=== PATIENT | male | born 1970 | race Caucasian/White ===

== ENCOUNTER 2025-03-18 17:26 | Emergency (ER) | payer MEDICAID, SELFPAY ==
[2025-03-18] VITALS (7 sets, daily range): BP systolic 119–156; BP diastolic 95–106; PULSE 87–109; RESP 16–26; TEMP 36.6–37; O2SAT 87–100; BMI 28.6
[2025-03-18] MEDS: NALOXONE INJ 0.4 MG/ML VIAL IV (17:40)
--- NOTE | 2025-03-18 17:41 | PD.EDADULT ---
ED General RME/HPI General Chief complaint: Overdose Stated complaint: FAINTED Time Seen by Provider: 03/18/25 17:34 Arrival date/time: 03/18/25 17:26 Limitations: altered mental status and other (nonresponsive) RME / HPI RME / HPI narrative: DR. JOSHUA MAIN ED EVALUATION: 54 year old male presents to the Emergency Department with complaint of possible overdose. At 1727 hours, code shahab was called. Patient stopped breathing and was diaphoretic, but never lost pulses. Narcan was given and we were getting ready to intubate, we were bagging the patient, when the patient started breathing spontaneously and started talking at 1730 hours. Patient woke up and became alert. No complaints after he woke up. Blood glucose was 145. Related Data Home Medications ?Medication ?Instructions ?Recorded ?Confirmed metformin 500 mg tablet 500 mg PO QDAY 07/05/24 07/05/24 albuterol sulfate 90 mcg/actuation 1 inh inhalation Q3H PRN asthma 07/06/24 07/06/24 aerosol inhaler beclomethasone dipropionate 80 1 inh inhalation BID 07/06/24 07/06/24 mcg/actuation HFA breath activated aerosol (Qvar RediHaler) Previous Rx's ?Medication ?Instructions ?Recorded aluminum-mag hydroxide-simethicone 30 ml PO QID PRN dyspepsia #3,000 07/08/24 200 mg-200 mg-20 mg/5 mL oral susp mL (Antacid) pantoprazole 40 mg tablet,delayed 40 mg PO BID #30 tabs 07/08/24 release (Protonix) sucralfate 1 gram tablet (Carafate) 1 g PO Q6H #30 tabs 07/08/24 albuterol sulfate 90 mcg/actuation 2 puff inhalation Q6H PRN 03/19/25 aerosol inhaler shortness of breath or wheezing #8.5 grams azithromycin 500 mg tablet 500 mg PO QDAY 3 days #3 tabs 03/19/25 (Zithromax TRI-KY) prednisone 50 mg tablet 50 mg PO BID 3 days #6 tabs 03/19/25 Allergies Allergy/AdvReac Type Severity Reaction Status Date / Time No Known Allergies Allergy Verified 03/18/25 17:40 Review of Systems Review of Systems ROS Unobtainable: unobtainable due to mental status Past Medical History Past Medical History NEUROLOGIC: Negative Seizures CARDIAC: Negative Congestive Heart Failure RESPIRATORY: Positive Chronic Obstructive Pulmonary Disease (COPD) GENITOURINARY: Negative Renal Disease ENDOCRINE: Positive Diabetes Mellitus Type 2; Negative Diabetes Mellitus Type 1 OTHER HISTORY: Positive Blood Transfusions; Negative Blood Transfusion Reaction or Anesthesia Reactions Social History SMOKING STATUS: Current every day smoker SUBSTANCE USE: does not use ALCOHOL: Never ED Exam Narrative Physical exam: At 1727 hours, agustin gudino was called. Patient stopped breathing and was diaphoretic, but never lost pulses. At 1730 hours, patient woke up and became alert. Physical exam at arrival: General Limitations: Present altered mental status and other (nonresponsive) General appearance: Present obese Head Head exam: Present atraumatic, normocephalic and normal inspection Eye Eye exam: Present other (Left eye blind, opacified. Right pupil was pinpoint.) ENT ENT exam: Present normal exam, normal oropharynx and mucous membranes moist Neck Neck exam: Present normal inspection Chest Chest inspection: Present normal inspection and symmetric chest wall rise Respiratory Respiratory exam: Present respiratory distress (not breathing initially) Cardiovascular Cardiovascular exam: Present regular rate, normal rhythm and normal heart sounds Abdominal Exam Abdominal exam: Present distention (obese and mild distention) Extremities Exam Extremities exam: Present normal inspection Back Exam Back exam: Present normal inspection Neurological Exam Neurological exam: Present other (nonresponsive; not moving any extremities) Skin Skin exam: Present warm, dry, intact and normal color Course Quality Measures none Orders Category Date Time Status Bedside COVID-19 Antigen Test NOW Care 03/18/25 21:13 Completed Bedside Influenza A&B Antigen Test NOW Care 03/18/25 21:13 Completed COVID-19 Screening Questionnaire NOW Care 03/18/25 22:[address] Screening NOW Care 03/18/25 21:14 Completed Decision to Admit X1 Care 03/18/25 22:18 Completed EKG (ED ONLY) *Do not use* NOW Care 03/18/25 17:43 Completed Saline [Insert IV] NOW Care 03/18/25 17:[address] head/brain wo con Stat Exams 03/18/25 17:48 Completed EKG (ED Only) Stat Exams 03/18/25 17:42 Draft XR chest 1V portable Stat Exams 03/18/25 17:48 Completed ABG [Arterial Blood Gas] Stat Lab 03/18/25 21:31 Completed ABG [Arterial Blood Gas] Stat Lab 03/18/25 23:21 Completed Acetaminophen Stat Lab 03/18/25 17:30 Completed Alcohol, Blood Medical Stat Lab 03/18/25 17:30 Completed BNP [B-Type Natriuretic Peptide] Stat Lab 03/18/25 20:54 Completed Bilirubin,Direct Stat Lab 03/18/25 17:30 Completed CBC Stat Lab 03/18/25 17:30 Completed CK [Creatine Kinase] Stat Lab 03/18/25 17:30 Completed CMP [Comprehensive Metabolic Panel] Stat Lab 03/18/25 17:30 Completed D-Dimer Stat Lab 03/18/25 20:54 Completed Drug Screen,Urine Stat Lab 03/18/25 19:26 Completed Free T4 (Free Thyroxine) Stat Lab 03/18/25 20:54 Completed Hemoglobin A1C [Glycohemoglobin w (eAG)] Stat Lab 03/18/25 17:30 Completed Magnesium Stat Lab 03/18/25 17:30 Completed PT [Prothrombin Time with INR] Stat Lab 03/18/25 17:30 Completed PTT [Partial Thromboplastin Time] Stat Lab 03/18/25 17:30 Completed Salicylate Stat Lab 03/18/25 17:30 Completed TSH [Thyroid Stimulating Hormone] Stat Lab 03/18/25 20:54 Completed Troponin I Stat Lab 03/18/25 17:30 Completed Troponin I Stat Lab 03/18/25 20:54 Completed UA, C/S IF [Urinalysis, C/S if Indicated] Stat Lab 03/18/25 19:26 Completed VBG [Venous Blood Gas] Stat Lab 03/18/25 17:30 Completed VBG [Venous Blood Gas] Stat Lab 03/18/25 20:54 Completed Albuterol/Ipratr Rt Tiffanie [Duoneb Rt Tiffanie] Med 03/18/25 21:13 Discontinued 3 ml INH X1 ONE Levalbuterol Rt [Xopenex Rt Tiffanie] Med 03/18/25 22:39 Discontinued 2.5 mg INH X1 ONE Magnesium Sulfate 2 GM Ivpb [Magnesium Sulfate Ivpb] Med 03/18/25 22:39 Discontinued 2 gm in 50 ml IV X1 MethylPREDNISolone.* [SoluMEDROL Inj] Med 03/18/25 21:13 Discontinued 125 mg IVP X1 ONE MethylPREDNISolone.* [SoluMEDROL Inj] Med 03/18/25 22:39 Discontinued 125 mg IVP X1 ONE NALOXONE INJ (Vial) [Narcan Inj (Vial)] Med 03/18/25 17:31 Discontinued 0.4 mg IV X1 ONE Ondansetron Inj [Zofran Inj] Med 03/18/25 17:47 Discontinued 4 mg IVP X1 ONE Ringers Lactated 1000 ml [Lactated Ringers] 1,000 ml Med 03/18/25 20:07 Discontinued IV 1,000 mls/hr Sodium Chloride 0.9% 1000 ml [Ns] 1,000 ml Med 03/18/25 17:47 Discontinued IV 999 mls/hr Sodium Chloride Rt Tiffanie 0.9% [NS Rt Tiffanie 0.9%] Med 03/18/25 22:39 Discontinued 9 ml INH PRN PRN Vital Signs Vital signs: Vital Signs Temperature 98.6 F 03/18/25 17:43 Pulse Rate 109 H 03/18/25 17:43 Respiratory Rate 24 H 03/18/25 17:43 Blood Pressure 156/106 H 03/18/25 17:43 Pulse Oximetry (%) 94 L 03/18/25 17:43 Oxygen Delivery Method Room Air 03/18/25 17:43 Critical Care Time Critical Care Time Critical Care Time: Yes Total Critical Care Time (min.): 45 Attestation: The high probability of sudden, clinically significant deterioration in the patient?s condition required the highest level of my preparedness to intervene urgently. The services I provided to this patient were to treat and/or prevent clinically significant deterioration. Services included the following: chart data review, reviewing nursing notes and/or old charts, documentation time, immigration consultant collaboration regarding findings and treatment options, medication orders and management, direct patient care, vital sign assessments and ordering, interpreting and reviewing diagnostic studies and lab tests. Aggregate critical care time includes only time during which I was engaged in work directly related to the patient?s care, as described above, whether at bedside or elsewhere in the Emergency Department. It did not include time spent performing other reported procedures or the services of residents, students, nurses or physician assistants. Discharge Plan Plan Patient Disposition: HOME (Self Care) Prescriptions/Referrals Prescriptions/Med Rec: New prednisone 50 mg tablet 50 mg PO BID 3 Days Qty: 6 0RF albuterol sulfate 90 mcg/actuation HFA aerosol inhaler 2 puff inhalation Q6H PRN (Reason: shortness of breath or wheezing) Qty: 8.5 0RF azithromycin [Zithromax TRI-KY] 500 mg tablet 500 mg PO QDAY 3 Days Qty: 3 0RF No Action metformin 500 mg Tablet 500 mg PO QDAY albuterol sulfate 90 mcg/actuation HFA aerosol inhaler 1 inh INHALATION Q3H PRN (Reason: asthma) Qvar RediHaler 80 mcg/actuation HFA aerosol breath activated 1 inh INHALATION BID pantoprazole [Protonix] 40 mg tablet,delayed release (DR/EC) 40 mg PO BID Qty: 30 0RF sucralfate [Carafate] 1 gram tablet 1 g PO Q6H Qty: 30 0RF alum-mag hydroxide-simeth [Antacid] 200-200-20 mg/5 mL suspension 30 ml PO QID PRN (Reason: dyspepsia) Qty: 3000 0RF Rx Instructions: administer between meals and at bedtime Referrals: Jeremy Leblanc PA-C [Primary Care Provider] - In 1 week Problem List Clinical Impression: COPD exacerbation, Overdose of fentanyl, Methamphetamine use, Alcohol intoxication Patient/Caregiver Discharge Instructions Discharge Activity: activity as tolerated Education Materials: ED COPD Flare, ED Drug Abuse, ED Alcohol Intoxication Additional Instructions: Discharge instructions from Dr. Cordoba: --After evaluation, you have many serious diagnoses, including fentanyl overdose and COPD flareup and alcohol intoxication and methamphetamine use. --Fortunately, we were able to save your life from the fentanyl overdose. Avoid alcohol and all drugs to prevent similar incident in the future. --My recommendation was hospitalization for further care. But since you declined and requested going home, you are being discharged. --No physical exertion for 3 days to help rest the lungs. ?No smoking or exposure to smoking or pets or dust or cold or humidity. --Zithromax to kill the germs causing the bronchitis. --Prednisone to help decrease the swelling in the airways. --Albuterol 2 puffs every 4-6 hours for 3 days to help keep the airways open. Then as needed for cough or shortness of breath. --See a private doctor on 03/20/2025 for recheck and further care. Ask to review all test results and official radiology reports, to make sure you receive all necessary follow-ups and monitoring. Ask for help keeping safe and healthy, including helping you to quit alcohol and drugs. --Seek immediate medical care with worsening or with any concerns. Print Language: [place] Stand Alone Forms: [employer] Award Info., Patient Portal Info Letter MDM Narrative MDM hospital course: I, Mansi Reece am scribing for and in the presence of Dr. Joshua. Clinical Information Provided by patient other: ED nurse Medical Records Reviewed [facility] Meds/Rx Considered, not Ordered None Labs/Rad/Tests considered, not Ordered None Chronic Illness/Social Conditions Add or document further as needed: alcohol abuse and drug abuse Medication Administration(s) Medication Administration History Discontinued Medications Albuterol/Ipratropium (Albuterol/Ipratropium (Duoneb) Rt Tiffanie 3 Ml Nebu) 3 ml INH X1 ONE Stop: 03/18/25 21:14 Last Admin: 03/18/25 21:24 Dose: 3 ml Documented By: GB Sodium Chloride (Ns) 1,000 mls @ 999 mls/hr IV .Q1H1M ONE Stop: 03/18/25 18:47 Last Infusion: 03/18/25 19:28 Dose: Infused Documented By: GB(2) Admin: 03/18/25 18:14 Dose: 999 mls/hr Documented By: AA Lactated Ringer's (Lactated Ringers) 1,000 mls @ 1,000 mls/hr IV .Q1H ONE Stop: 03/18/25 21:06 Last Infusion: 03/18/25 21:19 Dose: Infused Documented By: GB(2) Admin: 03/18/25 20:20 Dose: 1,000 mls/hr Documented By: CVL Magnesium Sulfate (Magnesium Sulfate Ivpb) 2 gm in 50 mls @ 25 mls/hr IV X1 ONE Stop: 03/19/25 00:38 Last Infusion: 03/18/25 23:45 Dose: Infused Documented By: GB(2) Admin: 03/18/25 23:27 Dose: 25 mls/hr Documented By: GB(2) Levalbuterol HCl (Levalbuterol Rt 1.25 Mg/0.5 Ml Nebu) 2.5 mg INH X1 ONE Stop: 03/18/25 22:40 Last Admin: 03/18/25 23:18 Dose: 2.5 mg Documented By: GB Methylprednisolone Sodium Succinate (Methylprednisolone Sod Succ 62.5 Mg/Ml 2ml Vial) 125 mg IVP X1 ONE Stop: 03/18/25 21:14 Last Admin: 03/18/25 21:27 Dose: 125 mg Documented By: ALONA(2) Methylprednisolone Sodium Succinate (Methylprednisolone Sod Succ 62.5 Mg/Ml 2ml Vial) 125 mg IVP X1 ONE Stop: 03/18/25 22:40 Last Admin: 03/18/25 23:26 Dose: 125 mg Documented By: ALONA(2) Naloxone HCl (Naloxone Inj 0.4 Mg/Ml Vial) 0.4 mg IV X1 ONE Stop: 03/18/25 17:32 Last Admin: 03/18/25 17:40 Dose: 0.4 mg Documented By: JAMMIE Co-signed By: PAUL Ondansetron HCl (Ondansetron Inj 2 Mg/Ml Inj 2 Ml) 4 mg IVP X1 ONE; Protocol Stop: 03/18/25 17:48 Last Admin: 03/18/25 18:12 Dose: 4 mg Documented By: JAMMIE Sodium Chloride (Sodium Chloride Rt Tiffanie 0.9% 3 Ml Nebu) 9 ml INH PRN PRN PRN Reason: SOLN Stop: 04/17/25 22:38 Diagnosis Differential diagnosis: overdose, drug abuse, apnea Most likely dx, and/or detailed dx discussion: No official diagnoses at this time, still pending diagnostic tests. Patient signout to the maintenance technician 2nd shift provider. Dispositon Disposition: other (No final disposition plan at this time, still pending diagnostic tests. Patient signout to the maintenance technician 2nd shift provider. )
--- NOTE | 2025-03-18 17:42 | EKG_ITS ---
[facility] Test Date: 2025-03-18 Pat Name: YOSHI ABDALLA Department: Room: - Gender: Male Facility Attendant: : 1970 Requested By: Jose Martinez Order Number: [id number] Reading MD: Jose Martinez Measurements Intervals [place] Rate: 101 P: 34 IA: 149 QRS: 35 QRSD: 84 T: 63 QT: 345 QTc: 449 Interpretive Statements SINUS TACHYCARDIA NONSPECIFIC T-WAVE ABNORMALITY ABNORMAL RHYTHM ECG Compared to ECG 07/05/2024 20:39:07 T-wave abnormality now present /[id number]/S0/[id number].pdf
--- NOTE | 2025-03-18 17:48 | XR_ITS ---
Examination: CT brain head without contrast. 2-D sagittal coronal reconstructions Date and time of exam:March 18, 2025 1833 hours Comparison July 05, 2024 INDICATIONS: Status post cardiopulmonary arrest, followed by altered mental status CTDI: vol (mGy):54.2 DLP: (mGycm):1172 Technique: Multiple CT axial sections of the brain have been obtained, 5 mm slice thickness. Contrast has not been administered. 2-D sagittal, coronal reconstructions have been obtained Low dose protocols were performed. One or more of the following dose reduction techniques were used; automated exposure control, adjustment of the mA and/or KV according to patient size, use of iterative reconstruction technique. Findings: No significant ventricular enlargement. Intra-axial or extra-axial hemorrhage density is not seen. No mass effect or midline shift Basal cisterns are not remarkable. Fourth ventricle is midline. Cranial vault intact. Atrophic left optic globe Impression: Negative for acute hemorrhage, mass effect or midline shift Negative for generalized cerebral edema As clinically warranted, brain MRI follow-up would best assess for ischemic/anoxic change
--- NOTE | 2025-03-18 17:48 | XR_ITS ---
Examination: AP chest single view TECHNIQUE: AP portable upright chest single view Date and time: March 18, 2025, 1756 hours INDICATIONS: Shortness of breath chest pain weakness today. FINDINGS: Normal heart size. Lungs are clear. The osseous structures are intact. IMPRESSION: No active disease.
--- NOTE | 2025-03-18 17:52 | EDNOTE_ITS ---
Emergency Room Addendum <Mansi Reece - Last Filed: 03/18/25 17:53> Addendum Narrative: I took over the care from Dr. Overton, the previous shift physician at 1800 hours on 03/14/2025.? See previous notes for complete H & P and ED course. I reviewed all diagnostic test results. My interpretation of the EKG is? My interpretation of the chest x-ray is My review of the CT report is? Blood tests and urine tests Diagnoses include Treatment here included Significant improvement Not yet done: I discussed the case with our hospitalist.? About the presentation and exam and diagnostics and treatments here.? And need of further care in the hospital. Will accept the patient. Not yet done: Based on my best medical judgment, made decision no further evaluation or treatment indicated at this time.? Patient understands and agrees to the discha rge instructions customized and printed, see below. Jose Cordoba MD <Romina Torres - Last Filed: 03/19/25 00:43> Addendum Narrative: I took over the care from Dr. Overton, the previous shift physician at 1800 hours on 03/14/2025.? See previous notes for complete H & P and ED course. I reviewed all diagnostic test results. My interpretation of the EKG is sinus rhythm with no acute ST?T changes. My interpretation of the chest x-ray is NAD. My review of the CT head report is?unremarkable. Blood tests remarkable for VBG pH 7.22, AST 112, ALT 114 and blood Alcohol 212. UDS positive for fentanyl, methamphetamine, and marijuana. Diagnoses include COPD exacerbation, overdose of fentanyl, methamphetamine use, alcohol intoxication. Treatment here included Narcan, NS, Solumedrol, Zofran, LR, Duoneb. I discussed the case with our hospitalist.? About the presentation and exam and diagnostics and treatments here.? And need of further care in the hospital. Discharge instructions from Dr. Cordoba: --After evaluation, you have many serious diagnoses, including fentanyl overdose and COPD flareup and alcohol intoxication and methamphetamine use. --Fortunately, we were able to save your life from the fentanyl overdose. Avoid alcohol and all drugs to prevent similar incident in the future. --My recommendation was hospitalization for further care. But since you declined and requested going home, you are being discharged. --No physical exertion for 3 days to help rest the lungs. ?No smoking or exposure to smoking or pets or dust or cold or humidity. --Zithromax to kill the germs causing the bronchitis. --Prednisone to help decrease the swelling in the airways. --Albuterol 2 puffs every 4-6 hours for 3 days to help keep the airways open. Then as needed for cough or shortness of breath. --See a private doctor on 03/20/2025 for recheck and further care. Ask to review all test results and official radiology reports, to make sure you receive all necessary follow-ups and monitoring. Ask for help keeping safe and healthy, including helping you to quit alcohol and drugs. --Seek immediate medical care with worsening or with any concerns. Jose Cordoba MD <Jose Cordoba MD - Last Filed: 03/19/25 00:46> Addendum Narrative: I took over the care from Dr. Overton, the previous shift physician at 1800 hours on 03/14/2025.? See previous notes for complete H & P and ED course. Patient presented unresponsive. Patient improved and returned to baseline with Narcan. I reviewed all diagnostic test results. My interpretation of the EKG is sinus rhythm with no acute ST?T changes. My interpretation of the chest x-ray is NAD. My review of the CT head report is?unremarkable. Blood tests remarkable for VBG pH 7.22, AST 112, ALT 114 and blood Alcohol 212. UDS positive for fentanyl, methamphetamine, and marijuana. My exam is remarkable for decreased air movement with diffuse rhonchi. Diagnoses include COPD exacerbation, overdose of fentanyl, methamphetamine use, alcohol intoxication. Treatment here from me included IV fluid, Zofran, Solu-Medrol 125 mg IV X 2, neb treatments, and MgSO4 2 gram IV. Some improvement noted. I recommended admission for further care. Patient declined. Discussed potential risks, including sudden . Patient understood but still declined. I couldn't change his mind. Discharge instructions from Dr. Cordoba: --After evaluation, you have many serious diagnoses, including fentanyl overdose and COPD flareup and alcohol intoxication and methamphetamine use. --Fortunately, we were able to save your life from the fentanyl overdose. Avoid alcohol and all drugs to prevent similar incident in the future. --My recommendation was hospitalization for further care. But since you declined and requested going home, you are being discharged. --No physical exertion for 3 days to help rest the lungs. ?No smoking or exposure to smoking or pets or dust or cold or humidity. --Zithromax to kill the germs causing the bronchitis. --Prednisone to help decrease the swelling in the airways. --Albuterol 2 puffs every 4-6 hours for 3 days to help keep the airways open. Then as needed for cough or shortness of breath. --See a private doctor on 03/20/2025 for recheck and further care. Ask to review all test results and official radiology reports, to make sure you receive all necessary follow-ups and monitoring. Ask for help keeping safe and healthy, including helping you to quit alcohol and drugs. --Seek immediate medical care with worsening or with any concerns. Jose Cordoba MD
--- NOTE | 2025-03-18 18:01 | PC.NURSE ---
@1727 SCHUYLER JENNIFER CALLED TO ROOM 03. PATIENT LAYING IN GURNEY CURRENTLY UNRESPONSIVE, BVM BY NURSE, PLACED ON BRINE SUPERVISOR, RT SETTING UP FOR POSSIBLE INTUBATION. PATIENT BLOOD SUGAR 145, IVL TO RIGHT FOREARM AND LEFT HAND PLACED, NARCAN ADMINISTERED. PATIENT AWOKE AND BEGAN SPEAKING IN FULL SENTENCES AT 1730, ALSO BEGAN TO WRETCH AND VOMIT. PATIENT STATED HE TOOK ONE HIT OF FENTANYL AT ABOUT 1500 JUST TO RELAX AFTER BEING FIRED FROM HIS WORK. PATIENT IS NOW ALERT, IN SHOCK AND RESPONDING TO ALL QUESTIONS, MOVING ALL EXTREMITIES.
[2025-03-18] MEDS: ONDANSETRON INJ 2 MG/ML INJ 2 ML 4 MG IVP (18:12)
[2025-03-18] MEDS: SODIUM CHLORIDE 0.9% 1000 ML 1,000 ML 999 ML IV (18:14)
[2025-03-18 18:19] LABS: Base Excess, Venous -8 (-3-3); O2 Saturation, Venous 85 % (96-97); PCO2, Venous 50 mmHg (36-56); PO2, Venous 59 mmHg (15-58); pH, Venous 7.22 (7.33-7.66)
[2025-03-18 18:20] LABS: Basophils # (Auto) 0.1 Thou/mm3 (0.0-0.2); Basophils % (Auto) 1 % (0-2.5); Eosinophils # (Auto) 0.4 Thou/mm3 (0.0-0.5); Eosinophils % (Auto) 4 % (0-10); Hematocrit 46.3 % (41.0-53.0); Immature Granulocytes % (Auto) 1 % (0-0); Immature Granulocytes Auto 0.13 Thou/mm3 (0.00-0.00); Lymphocytes # (Auto) 3.7 Thou/mm3 (1.0-4.8); Lymphocytes % (Auto) 36 % (10-50); Mean Corpuscular HGB Conc 36.7 g/dl (31.0-37.0); Mean Corpuscular Hemoglobin 33.9 pg (25.0-35.0); Mean Corpuscular Volume 92 fL (80-100); Monocytes # (Auto) 1.3 Thou/mm3 (0.0-0.8); Monocytes % (Auto) 13 % (0-12); Neutrophils # (Auto) 4.7 Thou/mm3 (1.8-7.7); Neutrophils % (Auto) 45 % (37-80); Nucleated Red Blood Cell % 0 /100 WBC (0); Platelet Count 197 Thou/mm3 (140-440); RDW Standard Deviation 42.6 fL (35.1-43.9); Red Blood Count 5.02 Miln/mm3 (4.50-5.90); White Blood Count 10.3 Thou/mm3 (3.8-10.6)
[2025-03-18 18:37] LABS: Glucose Estimated Average 117 mg/dL (80-131); Hemoglobin A1C 5.7 % Hgb (4.8-6.0)
[2025-03-18 18:52] LABS: Acetaminophen < 2.0 mcg/mL (10.0-20.0); Alanine Aminotransferase 114 U/L (10-49); Albumin, Serum 5.1 gm/dL (3.5-5.0); Albumin/Globulin Ratio 1.9 (1.2-2.2); Alkaline Phosphatase 192 U/L (46-116); Anion Gap 11 (7-16); Aspartate Amino Transferase 112 U/L (0-34); BUN/Creatinine Ratio 11 Ratio (12-20); Bilirubin,Direct 0.2 mg/dL (0.0-0.3); Bilirubin,Total 0.6 mg/dL (0.3-1.2); Blood Urea Nitrogen 12 mg/dL (9-23); Calcium 9.5 mg/dL (8.3-10.6); Calcium (Corrected) 9.5 mg/dL (8.5-10.1); Carbon Dioxide 21.9 mMol/L (20.0-31.0); Chloride 108 mMol/L (98-107); Creatine Kinase 58 U/L (34-171); Creatinine (Component) 1.1 mg/dL (0.6-1.3); Estimated Creatinine Clearance 92.2 mL/min (>60); Globulin 2.7 gm/dL (2.3-3.5); Glucose 138 mg/dL (74-106); Magnesium 2.1 mg/dL (1.6-2.6); Osmolality,Calculated 282 (275-295); Potassium 3.6 mMol/L (3.4-5.1); Salicylate < 3.0 mg/dL; Sodium 141 mMol/L (136-145); Total Protein 7.8 gm/dL (5.7-8.2); Troponin I < 0.020 ng/mL (0.0-0.045); eGFR > 60 See Note
[2025-03-18 19:41] LABS: Amphetamine/Methamp Scrn,U Positive (Negative); Barbiturate Screen,Urine Negative (Negative); Benzodiazepines Screen,Urine Negative (Negative); Benzoylecgonine Screen, Ur Negative (Negative); Fentanyl Screen,Urine Positive (Negative); Opiate Screen,Urine Negative (Negative); THC Screen,Urine Positive (Negative)
[2025-03-18] MEDS: RINGERS LACTATED 1000 ML 1,000 ML IV (20:20)
[2025-03-18 21:02] LABS: Base Excess, Venous -7 (-3-3); O2 Saturation, Venous 70 % (96-97); PCO2, Venous 47 mmHg (36-56); PO2, Venous 40 mmHg (15-58); pH, Venous 7.25 (7.33-7.66)
[2025-03-18] MEDS: ALBUTEROL/IPRATROPIUM (Duoneb) RT SOL 3 ML NEBU INH (21:24)
[2025-03-18] MEDS: MethylPREDNISolone SOD SUCC 62.5 MG/ML 2ML VIAL 125 MG IVP ×2 (21:27→23:26)
[2025-03-18 21:30] LABS: INR 1.1 (0.9-1.3); Partial Thromboplastin Time 26.2 Seconds (22.0-36.0); Prothrombin Time 11.5 Seconds (9.0-12.2)
[2025-03-18 21:39] LABS: B-Type Natriuretic Peptide < 20 pg/mL (0-100)
[2025-03-18 21:40] LABS: Base Excess -6 (-3-3); HCO3 20 mEq/L (20-26); Inspired Oxygen, FIO2 21 %; O2 Saturation 99 % (91-98); PCO2 37 mmHg (32.0-48.0); PO2 130 mmHg (83-108); pH, Arterial 7.33 (7.35-7.45)
[2025-03-18 21:42] LABS: Puncture Site Right Radial
[2025-03-18 21:43] LABS: Allen Test Performed/OK
[2025-03-18 21:44] LABS: D-Dimer 491 ng/mL (<600); Free T4 (Free Thyroxine) 1.03 ng/dL (0.89-1.76); Thyroid Stimulating Hormone 2.23 uIU/mL (0.55-4.78); Troponin I < 0.020 ng/mL (0.0-0.045)
[2025-03-18 22:05] LABS: Collection Type, Urine Clean Catch; Squamous Epithelial Cell,Urine 0 /hpf (0-5)
[2025-03-18 22:13] LABS: Bilirubin,Urine Negative (Negative); Blood,Urine Negative (Negative); Clarity,Urine Clear (Clear/Hazy); Color,Urine Lt-Yellow (Lt Yel-Yel); Culture Indicated,Urine Not Indicated; Glucose, Urine Negative (Negative); Ketones,Urine Negative (Negative); Leukocyte Esterase,Urine Negative (Negative); Nitrite,Urine Negative (Negative); Protein,Urine Trace (Neg - Trace); RBC,Urine < 1 /hpf (0-3); Specific Gravity,Urine 1.012 (1.001-1.035); Urobilinogen,Urine Negative mg/dL (0.0-1.0); WBC,Urine < 1 /hpf (0-5)
--- NOTE | 2025-03-18 23:03 | EVENTNT_ITS ---
Documentation for date of: 03/18/25 Event Note Event Note: Will call to assess a 54-year-old male with past medical history of polysubstance use, COPD (active smoker), NIDDM, and gastric ulcers who came into the ED brought in by ambulance due to possible overdose. In the ED CODE BLUE w as called, patient did not lose his pulse at any time but patient went into respiratory arrest and as they were going to intubate they administered Narcan and patient woke up. On assessment patient feels fine and he saturating well on room air maintaining O2 sats above 88% while speaking full sentences without any difficulty. Patient states he is feeling fine and that he knows he did multiple substances including alcohol, fentanyl, and meth at the same time and that was a bad choice at this time. States he feels okay at this time and he did not do this with any suicidal ideation. He states he has not been using his inhaler more than 2 times a week and has not been having any chills, fevers, increased sputum, abdominal pain, nausea, changes in bowel movements, burning sensation urination. At the time of assessment given that patient was saturating well on room air and his ABG showed good oxygenation as well as pCO2 of 37 with a pH of 7.33 and otherwise labs look unremarkable and his chest x-ray did not show any active disease at this time. Patient on physical assessment does have some wheezing bilaterally and he got 1 dose of Solu-Medrol 125 mg x 1 and one-time dose of DuoNebs. Given patient's current status we would recommend to give 1 more breathing treatment and if patient's wheezing has improved and he has not experienced respiratory depression again and is saturating above 88% we would recommend to discharge on prednisone taper and inhalers. General: A/O x3, no acute distress Eyes: PERRL, EOMI. Anicteric, vision grossly intact. Ears: No ear pain, no ear discharge, Hearing grossly intact. Nose: No nasal discharge. Mouth/Throat: Moist mucous membranes, no redness, no lesions. Neck: Neck supple, non-tender, no cervical lymphadenopathy. Lungs: Wheezing JOSE JUAN, No accessory muscle use. Cardio: Normal S1/S2, regular rhythm, no murmurs, no JVD Abdomen: Soft, non-tender, no palpable masses, peristalsis present, no guarding or rebound. Extremities: Symmetrical, no significant deformities, no peripheral edema , non-tender, peripheral pulses presents. Skin: No rashes, no lesions, warm to touch. Neuro: No focal neurological deficits. motor and sensory intact Psych: Cooperative, appropriate mood and effect. Case disclosed with Attending Dr. Gabriel Mario PGY1 Disclaimer: Even though this this note was dictated by speech recognition and even though it was carefully revised there may still be minor errors in wreath machine operator due to voice recognition software.
[2025-03-18] MEDS: LEVALBUTEROL RT 1.25 MG/0.5 ML NEBU 2.5 MG INH (23:18)
[2025-03-18 23:24] LABS: Base Excess -6 (-3-3); HCO3 20 mEq/L (20-26); Inspired Oxygen, FIO2 21 %; O2 Saturation 94 % (91-98); PCO2 38 mmHg (32.0-48.0); PO2 71 mmHg (83-108); pH, Arterial 7.32 (7.35-7.45)
[2025-03-18 23:25] LABS: Allen Test Performed/OK; Puncture Site Right Radial
[2025-03-18] MEDS: Magnesium Sulfate 2 GM Ivpb 2 GM/50 ML BAG IV (23:27)
[2025-03-19 00:42] VITALS: BP 156/95; PULSE 98; RESP 20; TEMP 36.6; O2SAT 92
== END 2025-03-19 00:45 | disposition home or self-care (01) ==
PROVIDERS: Emergency Provider Emergency Medicine; PCP Physician Assistant Medical
DX: T40.411A Poisoning by fentanyl or fentanyl analogs, accidental (unintentional), initial encounter (principal); F15.90 Other stimulant use, unspecified, uncomplicated; J44.1 Chronic obstructive pulmonary disease with (acute) exacerbation; F10.129 Alcohol abuse with intoxication, unspecified; R00.0 Tachycardia, unspecified; R06.02 Shortness of breath; R07.9 Chest pain, unspecified; R53.1 Weakness; Y90.7 Blood alcohol level of 200-239 mg/100 ml
CPT/HCPCS: 36415; 36600; 70450; 71045; 80053; 80307; 80320; 80329; 81001; 82248; 82550; 82803; 83036; 83735; 83880; 84439; 84443; 84484; 85025; 85379; 85610; 85730; 87400; 87811; 93005; 94640; 96127; 96361; 96365; 96375; 96376; 99291; A9270; J2310; J2405; J2919; J3475; J7030; J7120; G0480